=== PATIENT | male | born 1950 | race Caucasian/White ===

== ENCOUNTER 2021-11-29 09:59 | Emergency (ER) | payer OTHER, MEDICARE ==
[~2021-11-29] VITALS: Ht 180.3 cm; Wt 65.8 kg
== END 2021-11-29 11:52 | disposition home or self-care (01) ==
LOC: ER 09:59
DX: S01.01XA Laceration without foreign body of scalp, initial encounter (principal); W01.10XA Fall on same level from slipping, tripping and stumbling with subsequent striking against unspecified object, initial encounter; Z88.2 Allergy status to sulfonamides; F17.210 Nicotine dependence, cigarettes, uncomplicated
CPT/HCPCS: 12001; 70450; 99284-25